=== PATIENT | male | born 1985 | race African-American/Black ===

== ENCOUNTER 2018-02-25 01:11 | Emergency (ER) | payer OTHER ==
[~2018-02-25] VITALS: Ht 177.8 cm; Wt 122.0 kg
[2018-02-25 01:14] VITALS: BP 140/70
--- NOTE | 2018-02-25 01:26 | ED UPPER/LOWER EXTREMITY COMPL ---
History of Present Illness General Chief Complaint: Lower Extremity Problems Stated Complaint: R LEG PAIN AND SWELLING Source: patient Exam Limitations: no limitations Vital Signs & Intake/Output Vital Signs & Intake/Output Vital Signs Date Time Temp Pulse Resp B/P B/P Pulse O2 O2 Flow FiO2 Mean Ox Delivery Rate 02/25 0114 97.2 88 18 140/70 96 Room Air Allergies Coded Allergies: shellfish derived (Severe, THROAT CLOSURE 02/25/18) Reconcile Medications Cephalexin (Keflex) 500 MG CAPSULE 1 CAP PO 4 TIMES/DAY INFECTION Ibuprofen 800 MG TABLET 1 TAB PO TID PRN pain Sulfamethoxazole/Trimethoprim (Bactrim Ds Tablet) 800 MG-160 MG TABLET 1 TAB PO BID INFECION Triage Nurses Notes Reviewed? yes Onset: Gradual Duration: day(s): Timing: recent history Severity: moderate Pain/Injury Location: Right: Leg. Method of Injury: unknown Modifying Factors: Improves With: rest. Associated Symptoms: swelling, redness HPI: 32 yo gentleman presents with 2-3 days of redness and swelling in area of right inner thigh. He has no fever, lower extremity edema, lymphangitic streaking. He is otherwise well. Past History Medical History Any Pertinent Medical History? see below for history Surgical History Surgical History: none Family History Hx Contributory? No Review of Systems Review of Systems Constitutional: Reports: no symptoms. EENTM: Reports: no symptoms. Respiratory: Reports: no symptoms. Cardiovascular: Reports: no symptoms. Gastrointestinal/Abdominal: Reports: no symptoms. Genitourinary: Reports: no symptoms. Musculoskeletal: Reports: no symptoms. Skin: Reports: no symptoms. Neurological/Psychological: Reports: no symptoms. Hematologic/Endocrine: Reports: no symptoms. Immunological: Reports: no symptoms. All Other Systems: Reviewed and Negative Physical Exam Physical Exam General Appearance: well developed/nourished, mild distress Head: atraumatic Eyes: Bilateral: normal appearance. Ears, Nose, Throat: normal pharynx, normal ENT inspection, hearing grossly normal Neck: normal inspection, supple Cardiovascular/Respiratory: regular rate/rhythm Back: normal inspection Leg Right: 3x3cm of induration, no obvious abscess. no streaking. Skin: intact, normal color, warm/dry Lymphatic: no anterior cervical dilshad Progress Differential Diagnosis: abscess vs cellulitis Plan of Care: Current Medications Sig/Fede Start time Last Medication Dose Stop Time Status Admin Cephalexin 500 MG ONCE ONE 02/25 145 UNVr (Keflex) 02/25 146 Ibuprofen 800 MG ONCE ONE 02/25 145 UNVr (Motrin) 02/25 146 Trimethoprim/ 1 TAB ONCE ONE 02/25 145 UNVr Sulfamethoxazole 02/25 146 (Bactrim DS) Departure Departure Disposition: HOME OR SELF CARE Condition: Stable Clinical Impression Primary Impression: Cellulitis Referrals: Patient Has No Primary Care Dr (PCP/Family) Departure Forms: Customer Survey General Discharge Information Prescriptions: Current Visit Scripts Cephalexin (Keflex) 1 CAP PO 4 TIMES/DAY #28 CAP Sulfamethoxazole/Trimethoprim (Bactrim Ds Tablet) 1 TAB PO BID #14 TAB Ibuprofen 1 TAB PO TID PRN pain #10 TAB Comments bedside u/s.... no sign of obvious abscess.... discussed abx... pt encouraged to follow up if symptoms not improving.
[2018-02-25] MEDS ORDERED: BACTRIM DS TAB1 EACH PO ×2 (01:36→01:38)
[2018-02-25] MEDS ORDERED: IBUPROFEN800 M1 PO (01:38)
[2018-02-25] MEDS ORDERED: KEFLEX500 M1 PO (01:38)
== END 2018-02-25 01:55 ==
LOC: ERH 01:11
DX: L03.115 Cellulitis of right lower limb (principal)